=== PATIENT | female | born 1970 | race Caucasian/White ===

== ENCOUNTER 2018-03-09 13:28 | Emergency (ER) | payer OTHER, SELFPAY ==
[2018-03-09 13:30] VITALS: BP 119/84; PULSE 76; RESP 15; TEMP 37.2; O2SAT 99; BMI 23.9
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
[2018-03-09] MEDS: IBUPROFEN 400 MG TABLET 800 MG PO (17:04)
== END 2018-03-09 17:45 | disposition home or self-care (01) ==
PROVIDERS: Emergency Provider Internal Medicine
DX: S00.83XA Contusion of other part of head, initial encounter (principal); S62.605A Fracture of unspecified phalanx of left ring finger, initial encounter for closed fracture; Y04.2XXA Assault by strike against or bumped into by another person, initial encounter; Y99.0 Civilian activity done for income or pay
CPT/HCPCS: 29125; 73140; 81025; 99283

== ENCOUNTER → 2018-10-26 08:02 | Outpatient (CLI) | payer OTHER, SELFPAY ==
--- NOTE | 2018-10-26 08:02 | DI.MG.S_ITS ---
BILATERAL DIGITAL SCREENING MAMMOGRAM 3D/2D WITH CAD: 10/26/2018 CLINICAL: Routine screening. Comparison is made to exams dated: 04/18/2014 mammogram and 09/24/2013 mammogram - [facility]. The tissue of both breasts is heterogeneously dense. This may lower the sensitivity of mammography. Current study was also evaluated with a Computer Aided Detection (CAD) system. There is an asymmetry in the right breast posterior depth superior region seen on the mediolateral oblique view only. There is possible architectural distortion associated with the asymmetry. There is an asymmetry in the left breast posterior depth central to the nipple seen on the craniocaudal view only. There is possible architectural distortion associated with the asymmetry. IMPRESSION: INCOMPLETE: NEEDS ADDITIONAL IMAGING EVALUATION 1) The asymmetry in the right breast posterior depth superior region with possible associated architectural distortion seen on the mediolateral oblique view only is indeterminate. Additional views with possible ultrasound are recommended. 2) The asymmetry in the left breast posterior depth central to the nipple with possible associated architectural distortion seen on the craniocaudal view only is indeterminate. Additional views with possible ultrasound are recommended. This exam was interpreted at Station ID: [id number]. NOTE: For mammograms, a report in lay terms will be sent to the patient. Approximately 15% of breast malignancies will not be visualized mammographically. In the management of a palpable breast mass, a negative mammogram must not discourage biopsy of a clinically suspicious lesion. Electronically Signed By: Jone Lerner M.D. ecl/:10/26/2018 12:45:08 letter sent: Additional Imaging Needed ACR BI-RADS Category 0: Incomplete 3340F
== END ==
PROVIDERS: PCP Family Medicine; Visit Provider Family Medicine
DX: Z12.31 Encounter for screening mammogram for malignant neoplasm of breast (principal)
CPT/HCPCS: 77063; 77067

== ENCOUNTER → 2018-11-13 08:53 | Outpatient (CLI) | payer OTHER, SELFPAY ==
--- NOTE | 2018-11-13 08:54 | DI.MG.S_ITS ---
BILATERAL DIGITAL DIAGNOSTIC MAMMOGRAM 3D/2D WITH ADDITIONAL VIEWS: 11/13/2018 CLINICAL: Additional evaluation requested from prior study. Comparison is made to exams dated: 10/26/2018 [facility] and 04/18/2014 mammogram [facility]. The tissue of both breasts is heterogeneously dense. This may lower the sensitivity of mammography. There is a benign irregular asymmetry in the right breast middle depth superior region seen on the mediolateral oblique view only. This is not seen in additional views. There is a benign irregular asymmetry in the left breast posterior depth central to the nipple seen on the craniocaudal view only. This is not seen in additional views. No other significant masses or calcifications are seen in either breast. IMPRESSION: There is no mammographic evidence of malignancy. A 1 year screening mammogram is recommended. This exam was interpreted at Station ID: [id number]. NOTE: For mammograms, a report in lay terms will be sent to the patient. Approximately 15% of breast malignancies will not be visualized mammographically. In the management of a palpable breast mass, a negative mammogram must not discourage biopsy of a clinically suspicious lesion. Electronically Signed By: Jeremy morris/eric:11/13/2018 09:37:17 letter sent: Normal Exam ACR BI-RADS Category 2: Benign Finding(s) 3342F
== END ==
PROVIDERS: PCP Family Medicine; Visit Provider Family Medicine
DX: R92.8 Other abnormal and inconclusive findings on diagnostic imaging of breast (principal)
CPT/HCPCS: 77066; G0279

== ENCOUNTER → 2019-04-02 17:06 | Outpatient (CLI) | payer OTHER, SELFPAY | PROVIDERS: PCP Family Medicine; Visit Provider Family Medicine | DX: J02.9 Acute pharyngitis, unspecified (principal) | CPT/HCPCS: 87070; 87077; 87147 ==

== ENCOUNTER → 2019-05-31 16:50 | Outpatient (CLI) | payer OTHER, SELFPAY ==
[2019-05-31 17:07] LABS: Hematocrit 42.7 % (36-46); Hemoglobin 14.6 g/dL (12.0-16.0); Mean Corpuscular HGB Conc 34.2 % (30-36); Mean Corpuscular Hemoglobin 31.6 PG (26-34); Mean Corpuscular Volume 92.6 fL (80-100); Platelet Count 215 X10^3/uL (150-400); Red Blood Cell Count 4.61 X10^6/uL (4.0-5.2); Red Cell Distribution Width 12.9 % (11.6-14.8); White Blood Cell Count 6.8 X10^3/uL (4.5-11.0)
[2019-05-31 18:16] LABS: HEMOLYSIS < 15 (0-50); Iron 164 ug/dL (37-170)
[2019-05-31 18:27] LABS: Percent Iron Saturation 41 % (15-50); Total Iron Binding Capacity 396 ug/dL (265-497); Transferrin 329 mg/dL (206-381)
== END ==
PROVIDERS: PCP Family Medicine; Visit Provider Family Medicine
DX: D50.9 Iron deficiency anemia, unspecified (principal); E03.9 Hypothyroidism, unspecified
CPT/HCPCS: 36415; 83540; 83550; 84443; 85027

== ENCOUNTER → 2020-06-09 17:42 | Outpatient (CLI) | payer OTHER, SELFPAY ==
--- NOTE | 2020-06-09 17:43 | DI.MG.S_ITS ---
BILATERAL DIGITAL SCREENING MAMMOGRAM 3D/2D WITH CAD: 06/09/2020 CLINICAL: Routine screening. Comparison is made to exams dated: 11/13/2018 mammogram, 10/26/2018 mammogram - [facility], 04/18/2014 mammogram, and 09/24/2013 mammogram - [facility]. The tissue of both breasts is heterogeneously dense. This may lower the sensitivity of mammography. Current study was also evaluated with a Computer Aided Detection (CAD) system. There is an oval equal density asymmetry with an indistinct margin in the left breast middle depth central to the nipple seen on the craniocaudal view only. There is architectural distortion associated with the asymmetry. No other significant masses, calcifications, or other findings are seen in either breast. IMPRESSION: INCOMPLETE: NEEDS ADDITIONAL IMAGING EVALUATION The oval equal density asymmetry in the left breast is indeterminate. Mediolateral and spot compression views as well as additional views with possible ultrasound are recommended. This exam was interpreted at Station ID: [id number]. NOTE: For mammograms, a report in lay terms will be sent to the patient. Approximately 15% of breast malignancies will not be visualized mammographically. In the management of a palpable breast mass, a negative mammogram must not discourage biopsy of a clinically suspicious lesion. Electronically Signed By: Jeremy morris/eric:06/10/2020 08:28:37 letter sent: Additional Imaging Needed ACR BI-RADS Category 0: Incomplete [id number]
== END ==
PROVIDERS: PCP Family Medicine; Referring Provider Family Medicine; Visit Provider Family Medicine
DX: Z12.31 Encounter for screening mammogram for malignant neoplasm of breast (principal)
CPT/HCPCS: 77063; 77067

== ENCOUNTER → 2020-06-24 09:16 | Outpatient (CLI) | payer OTHER, SELFPAY ==
[2020-06-24 11:40] LABS: Cholesterol 214 mg/dL (140-199); Glucose 95 mg/dL (70-100); HDL Cholesterol 60 mg/dL (40-60); LDL Cholesterol Calculated 121 mg/dL (<100); Triglycerides 163 mg/dL (35-150)
[2020-06-24 12:10] LABS: Thyroid Stimulating Hormone 2.13 uIU/mL (0.47-4.68)
== END ==
PROVIDERS: PCP Family Medicine; Referring Provider Family Medicine; Visit Provider Family Medicine
DX: Z13.220 Encounter for screening for lipoid disorders (principal); E03.9 Hypothyroidism, unspecified; Z13.1 Encounter for screening for diabetes mellitus
CPT/HCPCS: 36415; 80061; 82947; 84443

== ENCOUNTER → 2020-07-09 08:44 | Outpatient (CLI) | payer OTHER, SELFPAY ==
--- NOTE | 2020-07-09 08:46 | DI.MG.S_ITS ---
UNILATERAL LEFT DIGITAL DIAGNOSTIC MAMMOGRAM 3D/2D WITH ADDITIONAL VIEWS: 07/09/2020 CLINICAL: Additional evaluation requested from prior study. Comparison is made to exams dated: 06/09/2020 mammogram, 11/13/2018 mammogram, 10/26/2018 mammogram - [facility], and 04/18/2014 mammogram - [facility]. The tissue of left breast is heterogeneously dense. This may lower the sensitivity of mammography. There is an oval equal density asymmetry with an indistinct margin in the left breast posterior depth central to the nipple seen on the craniocaudal view only. This is not confirmed in additional views and also has not significantly changed since the screening mammogram of 10/26/18. There is possible architectural distortion associated with the asymmetry. No other significant masses or calcifications are seen in the breast. IMPRESSION: INCOMPLETE: NEEDS ADDITIONAL IMAGING EVALUATION The oval equal density asymmetry in the left breast remains indeterminate. An ultrasound is recommended for further evaluation of this area. This was performed immediately following this exam. This exam was interpreted at Station ID: [id number]. NOTE: For mammograms, a report in lay terms will be sent to the patient. Approximately 15% of breast malignancies will not be visualized mammographically. In the management of a palpable breast mass, a negative mammogram must not discourage biopsy of a clinically suspicious lesion. Electronically Signed By: Kierra castro/:07/09/2020 09:57:47 ACR BI-RADS Category 0: Incomplete [id number]
--- NOTE | 2020-07-09 08:46 | DI.US.S_ITS ---
LIMITED ULTRASOUND OF LEFT BREAST: 07/09/2020 CLINICAL: Patient returns today to evaluate an architectural distortion in the left breast. Comparison is made to exams dated: 07/09/2020 mammogram, 06/09/2020 mammogram, and 11/13/2018 mammogram - [facility]. Color flow and real-time ultrasound of the left breast 11-1 o'clock, 5-7 o'clock, and retroareolar regions were performed. There is no abnormality seen in the left breast to correspond with the mammography finding in the posterior depth. Incidental finding of a 0.6 cm x 0.3 cm x 0.3 cm cluster of cysts in the left breast at 3 o'clock anterior depth 2 cm from the nipple. This cluster of cysts displays no posterior acoustic shadowing or enhancement. Color flow imaging demonstrates that there is no vascularity present. IMPRESSION: PROBABLY BENIGN There is no abnormality seen in the left breast to correspond with the mammography finding in the posterior depth. A follow-up left mammogram and possible ultrasound in 6 months is recommended to demonstrate stability. The 0.6 cm x 0.3 cm x 0.3 cm cluster of cysts in the left breast resembles apocrine metaplasia or a complicated cyst and is probably benign. A follow-up ultrasound in 6 months is recommended. Findings and recommendations were conveyed to the patient at time of exam. This exam was interpreted at Station ID: [id number]. Electronically Signed By: Kierra castro/:07/09/2020 10:50:26 letter sent: Followup Recommended Ultrasound BI-RADS: 3 Probably benign
== END ==
PROVIDERS: PCP Family Medicine; Referring Provider Family Medicine; Visit Provider Family Medicine
DX: R92.2 Inconclusive mammogram (principal); R92.8 Other abnormal and inconclusive findings on diagnostic imaging of breast
CPT/HCPCS: 76642; 77065; G0279

== ENCOUNTER → 2020-09-09 15:19 | Outpatient (CLI) | payer OTHER, SELFPAY ==
--- NOTE | 2020-09-09 15:22 | DI.MRI.S_ITS ---
BREAST MRI OF BOTH BREASTS: 09/09/2020 CLINICAL: Mastodynia. INDICATIONS: Mastodynia TECHNIQUE: The patient was placed prone in a dedicated breast imaging coil. Precontrast axial STIR and 3D FLASH without fat saturation sequences were obtained. Both before and after bolus injection of contrast, sequential 1-minute axial 3D FLASH with fat saturation sequences for 3 time points, with subtraction images and maximum intensity projections (MIP's) generated. Delayed sagittal FLASH images with fat saturation were also obtained. 20 cc ProHance gadolinium based IV contrast was administered. Computer-aided detection, including computer algorithm analysis of MRI image data for lesion detection and characterization, pharmacokinetic analysis, with further physician review for interpretation, was performed. Comparison is made to exams dated: 07/09/2020 mammogram, 06/09/2020 mammogram, 11/13/2018 mammogram, and 10/26/2018 mammogram - [facility]. FINDINGS: Image quality: Excellent. There is mild background parenchymal enhancement. Right breast: No suspicious masses or non masslike enhancement. Left breast: No suspicious masses or non masslike enhancement. There is a well-circumscribed, 6 mm, T2 hyperintense, nonenhancing structure, consistent with a cyst in the 3 o'clock position of the left breast about 1 cm from the nipple, probably corresponding to the sonographic finding of a complicated cyst seen previously. There is no correlate to the resolved, 12:00 o'clock asymmetry from screening mammography. Miscellaneous: No axillary or internal mammary chain adenopathy. The visible portions of the chest wall, heart, and liver are normal. IMPRESSION: PROBABLY BENIGN 1. No suspicious findings to explain left breast mastodynia or correlate to the screening mammography finding of asymmetry in the left breast. 2. Nonenhancing 6 mm cystic structure in the left breast likely corresponds to the complicated cyst as seen by ultrasound. 3. Continue with left breast follow-up mammogram and ultrasound in four months as previously recommended. BIRADS three, probably benign COMMENT: The imaging literature indicates that a negative contrast breast MRI examination has a high sensitivity and a moderate specificity for detecting and excluding invasive carcinomas to a detection threshold of 3-5 mm; nonetheless, appropriate clinical and mammographic follow-up are recommended. MRI is not sensitive for detecting DCIS (ductal carcinoma in situ) and may not detect large invasive neoplasms that show only minimal enhancement such as mucinous carcinoma. If there are suspicious calcifications or clinically worrisome palpable masses, then biopsy should still be considered. Invasive neoplasms can be hidden by co-existent and benign enhancement caused by mastitis, hormone therapy effects, radiation therapy, , and recent biopsy or surgery. False positive examinations can occur in a number of circumstances, including breasts that have recently been subject to invasive procedures and those that contain atypical ductal hyperplasia, hormonally stimulated glandular tissue, fat necrosis, or radial scars. This exam was interpreted at Station ID: [id number]. Electronically Signed By: Kierra castro/:09/10/2020 11:14:27 letter sent: Followup Recommended ACR BI-RADS Category 3: Probably benign [id number]
== END ==
PROVIDERS: PCP Family Medicine; Referring Provider Surgery; Visit Provider Surgery
DX: N64.4 Mastodynia (principal); N60.02 Solitary cyst of left breast
CPT/HCPCS: 77049

== ENCOUNTER → 2021-09-14 17:51 | Outpatient (CLI) | payer OTHER, SELFPAY ==
--- NOTE | 2021-09-14 17:52 | DI.MG.S_ITS ---
BILATERAL DIGITAL SCREENING MAMMOGRAM 3D/2D WITH CAD: 09/14/2021 CLINICAL: Routine screening. Comparison is made to exams dated: 01/27/2021 ultrasound, 01/27/2021 mammogram - [facility], 07/09/2020 ultrasound, 07/09/2020 mammogram, and 06/09/2020 mammogram - [facility]. The tissue of both breasts is heterogeneously dense. This may lower the sensitivity of mammography. Current study was also evaluated with a Computer Aided Detection (CAD) system. No significant masses, calcifications, or other findings are seen in either breast. There has been no significant interval change. IMPRESSION: NEGATIVE There is no mammographic evidence of malignancy. A 1 year screening mammogram is recommended. This exam was interpreted at Station ID: [id number]. NOTE: For mammograms, a report in lay terms will be sent to the patient. Approximately 15% of breast malignancies will not be visualized mammographically. In the management of a palpable breast mass, a negative mammogram must not discourage biopsy of a clinically suspicious lesion. Electronically Signed By: Kierra castro/eric:09/15/2021 10:33:59 letter sent: Normal Exam ACR BI-RADS Category 1: Negative [id number]
== END ==
PROVIDERS: PCP Family Medicine; Referring Provider Surgery; Visit Provider Surgery
DX: Z12.31 Encounter for screening mammogram for malignant neoplasm of breast (principal)
CPT/HCPCS: 77063; 77067

== ENCOUNTER → 2022-01-07 08:27 | Outpatient (CLI) | payer OTHER, SELFPAY ==
[2022-01-07 10:45] LABS: Add Manual Diff / Slide Review NO; Basophils Absolute Auto 100 /uL (0-100); Basophils Percent Auto 1.2 % (0-2); Eosinophils Absolute Auto 100 /uL (0-450); Eosinophils Percent Auto 1.4 % (2-4); Hematocrit 33.1 % (36-46); Hemoglobin 10.5 g/dL (12.0-16.0); Lymphocytes Absolute Auto 1100 /uL (1100-4500); Lymphocytes Percent Auto 19.7 % (25-40); Mean Corpuscular HGB Conc 31.9 % (30-36); Mean Corpuscular Hemoglobin 23.1 PG (26-34); Mean Corpuscular Volume 72.3 fL (80-100); Monocytes Absolute Auto 300 /uL (0-900); Monocytes Percent Auto 5.7 % (3-14); Neutrophils Absolute Auto 3900 /uL (1500-7000); Platelet Count 291 X10^3/uL (150-400); Red Blood Cell Count 4.57 X10^6/uL (4.0-5.2); Red Cell Distribution Width 16.9 % (11.6-14.8); White Blood Cell Count 5.5 X10^3/uL (4.5-11.0)
[2022-01-07 11:09] LABS: Alanine Aminotransferase 18 IU/L (<35); Albumin 4.3 g/dL (3.5-5.0); Albumin Globulin Ratio 1.8 (1.0-2.8); Alkaline Phosphatase 57 U/L (38-126); Aspartate Aminotransferase 23 IU/L (14-36); Bilirubin Total 0.5 mg/dL (0.2-1.3); Calcium 8.8 mg/dL (8.4-10.2); Carbon Dioxide 30 mmol/L (22-32); Chloride 102 mmol/L (98-107); Cholesterol 201 mg/dL (140-199); Estimated Glomerular Filt Rate > 60 mL/min (>60); Globulin 2.4 g/dL (1.7-4.1); Glucose 88 mg/dL (70-100); HDL Cholesterol 68 mg/dL (40-60); HEMOLYSIS < 15 (0-50); LDL Cholesterol Calculated 113 mg/dL (<100); Potassium 4.4 mmol/L (3.4-5.1); Sodium 137 mmol/L (137-145); Total Protein 6.7 g/dL (6.3-8.2); Triglycerides 102 mg/dL (35-150)
[2022-01-07 11:12] LABS: BUN Creatinine Ratio 17.3 (6-22); Blood Urea Nitrogen 13 mg/dL (7-17)
[2022-01-07 11:14] LABS: Follicle Stimulating Hormone 6.36 mIU/mL
[2022-01-07 11:30] LABS: Estradiol, Total 60.7 pg/mL
[2022-01-07 11:38] LABS: Cortisol AM (Before 10AM) 7.86 ug/dL (4.46-22.7)
[2022-01-07 11:42] LABS: Ferritin 4 ng/mL (11-264)
[2022-01-07 17:15] LABS: HEMOLYSIS < 15 (0-50); Iron 22 ug/dL (37-170)
[2022-01-07 17:26] LABS: Percent Iron Saturation 5 % (15-50); Total Iron Binding Capacity 481 ug/dL (265-497); Transferrin 354 mg/dL (206-381)
[2022-01-07 18:22] LABS: Vitamin B12 166 pg/mL (239-931)
== END ==
PROVIDERS: PCP Family Medicine; Referring Provider Naturopath; Visit Provider Naturopath
DX: Z00.00 Encounter for general adult medical examination without abnormal findings (principal); R53.83 Other fatigue; N95.9 Unspecified menopausal and perimenopausal disorder
CPT/HCPCS: 36415; 80053; 80061; 82533; 82607; 82670; 82728; 82746; 83001; 83540; 83550; 84443; 85025

== ENCOUNTER → 2022-03-10 07:02 | Outpatient (CLI) | payer OTHER, SELFPAY ==
[2022-03-10 08:28] LABS: Add Manual Diff / Slide Review NO; Basophils Absolute Auto 100 /uL (0-100); Eosinophils Absolute Auto 100 /uL (0-450); Eosinophils Percent Auto 1.6 % (2-4); Hematocrit 38.1 % (36-46); Hemoglobin 12.8 g/dL (12.0-16.0); Lymphocytes Absolute Auto 1100 /uL (1100-4500); Lymphocytes Percent Auto 20.2 % (25-40); Mean Corpuscular HGB Conc 33.5 % (30-36); Mean Corpuscular Hemoglobin 26.7 PG (26-34); Mean Corpuscular Volume 79.6 fL (80-100); Monocytes Absolute Auto 400 /uL (0-900); Monocytes Percent Auto 6.6 % (3-14); Neutrophils Absolute Auto 3800 /uL (1500-7000); Neutrophils Percent Auto 70.6 % (50-75); Platelet Count 259 X10^3/uL (150-400); Red Blood Cell Count 4.79 X10^6/uL (4.0-5.2); Red Cell Distribution Width 21.2 % (11.6-14.8); White Blood Cell Count 5.3 X10^3/uL (4.5-11.0)
[2022-03-10 09:01] LABS: Anisocytosis 1+
[2022-03-10 09:03] LABS: HEMOLYSIS < 15 (0-50); Iron 30 ug/dL (37-170)
[2022-03-10 09:14] LABS: Percent Iron Saturation 8 % (15-50); Total Iron Binding Capacity 395 ug/dL (265-497); Transferrin 292 mg/dL (206-381)
[2022-03-10 09:32] LABS: Ferritin 11 ng/mL (11-264)
[2022-03-10 10:04] LABS: Folate 7.9 ng/mL (2.76-20.0); Vitamin B12 298 pg/mL (239-931)
== END ==
PROVIDERS: PCP Family Medicine; Referring Provider Naturopath; Visit Provider Naturopath
DX: D84.9 Immunodeficiency, unspecified (principal); R53.83 Other fatigue; Z00.00 Encounter for general adult medical examination without abnormal findings
CPT/HCPCS: 36415; 82607; 82728; 82746; 83540; 83550; 85025

== ENCOUNTER → 2022-03-27 08:28 | Outpatient (CLI) | payer OTHER, SELFPAY ==
[2022-03-27 09:32] LABS: Add Manual Diff / Slide Review NO; Basophils Absolute Auto 100 /uL (0-100); Basophils Percent Auto 1.3 % (0-2); Eosinophils Absolute Auto 100 /uL (0-450); Eosinophils Percent Auto 2.3 % (2-4); Hematocrit 41.1 % (36-46); Hemoglobin 13.7 g/dL (12.0-16.0); Lymphocytes Absolute Auto 900 /uL (1100-4500); Lymphocytes Percent Auto 17.2 % (25-40); Mean Corpuscular HGB Conc 33.2 % (30-36); Mean Corpuscular Hemoglobin 27.6 PG (26-34); Mean Corpuscular Volume 82.9 fL (80-100); Monocytes Absolute Auto 300 /uL (0-900); Monocytes Percent Auto 5.3 % (3-14); Neutrophils Absolute Auto 3700 /uL (1500-7000); Neutrophils Percent Auto 73.9 % (50-75); Platelet Count 214 X10^3/uL (150-400); Red Blood Cell Count 4.96 X10^6/uL (4.0-5.2); Red Cell Distribution Width 19.4 % (11.6-14.8)
[2022-03-31 17:08] LABS: ANA Screen, IFA Positive (.)
== END ==
PROVIDERS: PCP Family Medicine; Referring Provider Naturopath; Visit Provider Naturopath
DX: D64.9 Anemia, unspecified (principal); R53.83 Other fatigue
CPT/HCPCS: 36415; 85025; 86038

== ENCOUNTER → 2022-06-14 09:28 | Outpatient (CLI) | payer OTHER, SELFPAY ==
[2022-06-14 11:57] LABS: COVID19 -Nasal RAPID Negative (Negative)
== END ==
PROVIDERS: PCP Family Medicine; Visit Provider Surgery
DX: Z01.812 Encounter for preprocedural laboratory examination (principal); Z20.822 Contact with and (suspected) exposure to COVID-19
CPT/HCPCS: 87635; C9803

== ENCOUNTER 2022-12-24 08:11 | Day surgery (SDC) | payer OTHER, SELFPAY ==
[2022-12-24] VITALS (8 sets, daily range): BP systolic 99–117; BP diastolic 68–81; PULSE 61–89; RESP 16–22; TEMP 36.3–36.4; O2SAT 97–100; BMI 23.9
--- NOTE | 2022-12-24 | PATH_ITS ---
[facility] Accession Number: [id number] No. of containers..02 Tissue . 01 Material submitted: . PART A: colon - CECAL POLYP PART B: rectum - RECTAL POLYP . 01 Diagnosis: A. Cecal Polyp: Tubular adenoma. . B. Rectal Polyp: Tubular adenoma. MRV 01/04/2023 1707 Local . 01 Electronically signed: . Conchita Nelson MD, Pathologist NPI- [id number] . 01 Gross description: . Part A: CECAL POLYP: Received in formalin are 2 fragment(s) of [place], soft tissue measuring 0.1 x 0.1 x 0.1 cm to 0.2 x 0.2 x 0.2 cm submitted entirely in 1 cassette(s) Part B: RECTAL POLYP: Received in formalin are 3 fragment(s) of [place], soft tissue measuring 0.2 x 0.2 x 0.2 cm to 0.3 x 0.2 x 0.1 cm submitted entirely in 1 cassette(s) /LEOLA 12/31/2022 2334 Local . 01 Pathologist provided ICD-10: K63.5 . 01 CPT . 939780, 872800 Specimen Comment: A courtesy copy of this report has been sent to [facility] Pathology Performed at: 01 [facility] [address], [place], [place] [id number] MD Jeremy Mcdaniels MD Phone: [phone]
[2022-12-24] MEDS: SCOPOLAMINE 1 PATCH TOP (08:47)
[2022-12-24] MEDS: ONDANSETRON 4 MG/2 ML INJ IV (08:51)
[2022-12-24] MEDS: FAMOTIDINE 20 MG/2 ML VIAL IV (08:53)
[2022-12-24] MEDS: LACTATED RINGERS 1,000 ML 42 ML IV (09:07)
--- NOTE | 2022-12-24 09:18 | PM.HP.1 ---
History of Present Illness History of Present Illness Date Patient Seen: 12/24/22 Time Patient Seen: 09:18 Chief complaint: Colonoscopy Narrative: Ms. Barraza presents today for her 1st screening colonoscopy. She did have a grandfather who was potentially diagnosed with colon cancer at the age of 90 but they were not sure because he decided not to have any treatment. As far she knows she has no other family history of colon cancer. No other family members who have had polyps on their screening colonoscopy that she is aware of. She has had no concerning symptoms no bleeding, changes in bowel habits, or abdominal pain. [facility] Medical History (Updated 06/02/20 @ 13:46 by Antonia Buckner MD) Anemia Chicken pox Hemorrhoid (~2016) Herpes Hypothyroidism Iron deficiency anemia Recurrent sinusitis Vertigo Vision disorder Surgical History Anesthesia History of section History of sinus surgery (~01/2012) Hooper teeth removed (~1994) Social History marital status: household members: spouse pets and animals: Yes education level: master's degree occupational status: employed [employer]ism: [employer] leisure activities: reading other: crafts seatbelt use: always helmet use: Yes working smoke detector in home: Yes fire extinguisher in home: Yes carbon monox detector in home: Yes firearms in home: No Smoking Status: Never smoker alcohol intake: current substance use type: does not use during the past year weight has: increased > 10 lbs daily servings fruits/ve-4 caffeine: Yes eating out: rarely or never Meds Home Medications and Allergies Home Medications Medication Instructions Recorded Confirmed Type levothyroxine 100 mcg tablet See Rx Instructions .Route 04/20/21 12/24/22 Rx .COMPLEX #90 tabs Allergies Allergy/AdvReac Type Severity Reaction Status Date / Time Sulfa (Sulfonamide AdvReac Mild swelling Verified 12/24/22 08:22 Antibiotics) ankles, blotches Exam Vital Signs (past 8 hours): - 12/24/22 08:29 Temperature 97.5 F L Pulse Rate 89 Respiratory Rate 17 Blood Pressure 115/81 Pulse Oximetry 97 Oxygen Delivery Method Room Air Oxygen Delivery Method Room Air Const General: cooperative, healthy appearing and comfortable HENMT Head: normal to inspection Eyes General: appearance normal, both eyes and all related structures Resp Effort & Inspection: normal respiratory effort and able to speak in complete sentences GI Palpation: soft and No tender Assessment & Plan Assessment & Plan narrative: Presents today for screening colonoscopy I discussed the risks benefits and alternatives including but not limited to perforation of the colon and an incomplete exam she fully understands these risks and would like to proceed.
--- NOTE | 2022-12-24 10:14 | P.OP.COLON_ITS ---
Operative Date/Time/Diagnoses Date of procedure: 12/24/22 Pre-op diagnosis: Colon cancer screening, +/-family history of colon cancer with a grandfather who had a questionable diagnosis at age 90. Post-op diagnosis: same Procedure & Clinicians Study performed: Colonoscopy and biopsy Same procedure as scheduled: Yes Indications: Colon cancer screening Surgeon: Daphne Salinas Procedure Notes Procedure in detail: Patient was taken to the endoscopy suite and placed in a left lateral decubitus position. A time-out was performed. With the help of anesthesiology provider, conscious sedation was induced and monitored throughout the case. A digital rectal exam was performed and there were no masses or strictures. The colonoscope was introduced into the anal canal and advanced through to the cecum. There were scattered diverticula in the sigmoid colon. A photograph of the appendiceal orifice was obtained. The bowel prep was good [place] bowel prep score of 2. The scope was then withdrawn for a total of 13 minutes. There was 1 small polyp that was seen in the cecum near the appendiceal orifice. It was removed with biopsy forceps and sent pathology. There was also 1 small polyp removed from the rectum again with the biopsy forceps. The scope was then retroflexed and a photograph of the internal hemorrhoidal piles was obtained. Findings: divertiulosis Specimen(s): other (1. Go polyp 2. Rectal polyp (both small) ) Complications: none Post-procedure Plan for aftercare: Colonoscopy in 7-10 years. If family history of colon cancer is considered to be positive follow-up recommendation would be 5 years. I do recommend a fiber supplement with diverticula and polyps.
== END 2022-12-24 10:40 | disposition home or self-care (01) ==
PROVIDERS: PCP Family Medicine; Referring Provider Surgery; Visit Provider Surgery
PROC: 0DJD8ZZ Inspection of Lower Intestinal Tract, Via Natural or Artificial Opening Endoscopic (ICD-10-PCS; CPT 45378; principal; 2022-12-24 09:15)
DX: Z12.11 Encounter for screening for malignant neoplasm of colon (principal); K57.30 Diverticulosis of large intestine without perforation or abscess without bleeding; D12.0 Benign neoplasm of cecum; D12.8 Benign neoplasm of rectum
CPT/HCPCS: 45380; J2405; J2704

== ENCOUNTER → 2023-02-01 06:44 | Outpatient (CLI) | payer OTHER, SELFPAY ==
[2023-02-01 08:10] LABS: Add Manual Diff / Slide Review NO; Basophils Absolute Auto 100 /uL (0-100); Basophils Percent Auto 1.4 % (0-2); Eosinophils Absolute Auto 100 /uL (0-450); Eosinophils Percent Auto 2.4 % (2-4); Hematocrit 42.5 % (36-46); Hemoglobin 14.7 g/dL (12.0-16.0); Lymphocytes Absolute Auto 1200 /uL (1100-4500); Lymphocytes Percent Auto 25.5 % (25-40); Mean Corpuscular HGB Conc 34.6 % (30-36); Mean Corpuscular Hemoglobin 30.7 PG (26-34); Mean Corpuscular Volume 88.8 fL (80-100); Monocytes Absolute Auto 400 /uL (0-900); Monocytes Percent Auto 7.5 % (3-14); Neutrophils Absolute Auto 3000 /uL (1500-7000); Neutrophils Percent Auto 63.2 % (50-75); Platelet Count 203 X10^3/uL (150-400); Red Blood Cell Count 4.79 X10^6/uL (4.0-5.2); Red Cell Distribution Width 13.1 % (11.6-14.8); White Blood Cell Count 4.7 X10^3/uL (4.5-11.0)
[2023-02-01 08:46] LABS: HEMOLYSIS < 15 (0-50)
[2023-02-01 08:50] LABS: Iron 107 ug/dL (37-170)
[2023-02-01 09:00] LABS: Alanine Aminotransferase 18 IU/L (<35); Albumin 4.2 g/dL (3.5-5.0); Albumin Globulin Ratio 1.8 (1.0-2.8); Alkaline Phosphatase 55 U/L (38-126); Aspartate Aminotransferase 23 IU/L (14-36); Bilirubin Total 0.8 mg/dL (0.2-1.3); Blood Urea Nitrogen 15 mg/dL (7-17); Carbon Dioxide 27 mmol/L (22-32); Chloride 103 mmol/L (98-107); Estimated Glomerular Filt Rate > 60 mL/min (>60); Globulin 2.4 g/dL (1.7-4.1); Glucose 97 mg/dL (70-100); HEMOLYSIS < 15 (0-50); Percent Iron Saturation 28 % (15-50); Potassium 4.1 mmol/L (3.4-5.1); Sodium 138 mmol/L (137-145); Total Iron Binding Capacity 377 ug/dL (265-497); Total Protein 6.6 g/dL (6.3-8.2)
[2023-02-01 09:01] LABS: Transferrin 293 mg/dL (206-381)
[2023-02-01 09:11] LABS: Free T4, Direct Thyroxine 1.01 ng/dL (0.78-2.19)
[2023-02-01 09:25] LABS: Thyroid Stimulating Hormone 4.02 uIU/mL (0.47-4.68)
[2023-02-01 10:05] LABS: Folate 7.7 ng/mL (2.76-20.0); Vitamin B12 190 pg/mL (239-931)
== END ==
PROVIDERS: PCP Naturopath; Referring Provider Naturopath; Visit Provider Naturopath
DX: D50.9 Iron deficiency anemia, unspecified (principal); E03.9 Hypothyroidism, unspecified
CPT/HCPCS: 36415; 80053; 82607; 82746; 83540; 83550; 84439; 84443; 84481; 85025

== ENCOUNTER → 2023-02-22 07:19 | Outpatient (CLI) | payer OTHER, SELFPAY ==
[2023-02-22 07:44] LABS: Reticulocyte Count, Percent 0.8 % (1.1-2.6)
[2023-02-23 09:01] LABS: Homocysteine 13.5 umol/L (0.0-14.5)
[2023-02-23 19:08] LABS: Deamidated Gliadin Ab IgA 3 units (0-19); Deamidated Gliadin Ab IgG 2 units (0-19); Immunoglobulin A,Qn 62 mg/dL (87-352); t-Transglutaminase IgA <2 U/mL (0-3)
[2023-02-25 17:08] LABS: Intrinsic Factor Blocking Aby 1.1 AU/mL (0.0-1.1)
== END ==
PROVIDERS: PCP Naturopath; Referring Provider Naturopath; Visit Provider Naturopath
DX: E53.8 Deficiency of other specified B group vitamins (principal); D64.9 Anemia, unspecified
CPT/HCPCS: 36415; 82784; 83090; 83516; 85045; 86340

== ENCOUNTER 2023-05-23 09:33 | Day surgery (SDC) | payer OTHER, SELFPAY ==
--- NOTE | 2023-05-23 | PATH_ITS ---
[facility] Accession Number: [id number] No. of containers..04 Tissue . 01 Material submitted: . PART A: duodenum - DUODENUM PART B: stomach - ANTRUM PART C: stomach - GASTRIC BODY PART D: esophagus - MID ESOPHAGUS . 01 Diagnosis: A. Duodenum, Biopsy: Duodenal mucosa with no diagnostic abnormality. Negative for active inflammation, features of sprue, dysplasia, or malignancy. . B. Antrum, Biopsy: Gastric mucosa with mild chronic inflammation. No Helicobacter pylori organisms identified on immunohistochemical evaluation. No intestinal metaplasia, dysplasia, or malignancy. . C. Gastric Body, Biopsy: Gastric mucosa with moderate chronic inflammation and focal intestinal metaplasia. No Helicobacter pylori organisms identified on immunohistochemical evaluation. No dysplasia or malignancy. . D. Mid Esophagus, Biopsy: Esophageal squamous epithelium with no significant diagnostic alterations. No evidence of eosinophilic esophagitis. No fungal organisms identified on H/E slide. No glandular mucosa present. No dysplasia or malignancy. [facility] 06/06/2023 1036 Local . 01 Electronically signed: . Alyson Padron MD, Pathologist NPI- [id number] . 01 Gross description: . Part A: DUODENUM: Received in formalin is multiple fragment(s) of [place], soft tissue measuring 0.8 x 0.4 x 0.1 cm in aggregate submitted entirely in 1 cassette(s) Part B: ANTRUM: Received in formalin is 2 fragment(s) of [place], soft tissue measuring 0.3 x 0.1 x 0.1 cm to 0.1 x 0.1 x 0.1 cm submitted entirely in 1 cassette(s) Part C: GASTRIC BODY: Received in formalin is 2 fragment(s) of [place], soft tissue measuring 0.2 x 0.2 x 0.1 cm to 0.2 x 0.1 x 0.1 cm submitted entirely in 1 cassette(s) Part D: MID ESOPHAGUS: Received in formalin is 2 fragment(s) of [place], soft tissue measuring 0.3 x 0.3 x 0.1 cm to 0.2 x 0.2 x 0.1 cm submitted entirely in 1 cassette(s) /AAY 05/24/2023 0546 Local . 01 Microscopic: . B. An immunohistochemical stain was performed to evaluate for Helicobacter organisms and is negative. The control stain showed appropriate reactivity. . C. An immunohistochemical stain was performed to evaluate for Helicobacter organisms and is negative. The control stain showed appropriate reactivity. . * This test was developed and its performance characteristics determined by [employer]. It has not been cleared or approved by the U.S. Food and Drug Administration. The FDA has determined that such clearance or approval is not necessary. This test is used for clinical purposes. It should not be regarded as investigational or for research. . 01 Pathologist provided ICD-10: K29.70, R19.7 . 01 CPT . 123886, 964652, 748743, 208585, I67693, D12361 Specimen Comment: A courtesy copy of this report has been sent to [phone] Performed at: 01 [facility] [address] [place] [address], [place], [place] [id number] MD Jeremy Mcdaniels MD Phone: [phone]
[2023-05-23] MEDS: LACTATED RINGERS 1,000 ML 42 ML IV (09:47)
--- NOTE | 2023-05-23 09:53 | P.HP_ITS ---
History of Present Illness History of Present Illness Date Patient Seen: 05/23/23 Time Patient Seen: 09:54 Chief complaint: EGD Narrative: I recently reviewed the note by Raul Shah. Patient indicates that she is no longer iron deficient and has not been taking iron supplementation since about November. She continues to struggle with B12 deficiency. [facility] Medical History Iron deficiency anemia Vision disorder Herpes Chicken pox Anemia Vertigo Recurrent sinusitis Hemorrhoid (~2016) Hypothyroidism Surgical History Anesthesia History of sinus surgery (~01/2012) History of section [place] teeth removed (~1994) Social History marital status: household members: spouse pets and animals: Yes education level: master's degree occupational status: employed pasha/hinduism: buddhism leisure activities: reading other: [employer] seatbelt use: always helmet use: Yes working smoke detector in home: Yes fire extinguisher in home: Yes carbon monox detector in home: Yes firearms in home: No Smoking Status: Never smoker alcohol intake: current substance use type: does not use during the past year weight has: increased > 10 lbs daily servings fruits/ve-4 caffeine: Yes eating out: rarely or never Meds Home Medications and Allergies Home Medications Medication Instructions Recorded Confirmed Type levothyroxine 100 mcg tablet See Rx Instructions .Route 04/20/21 12/24/22 Rx .COMPLEX #90 tabs Allergies Allergy/AdvReac Type Severity Reaction Status Date / Time Sulfa (Sulfonamide AdvReac Mild swelling Verified 12/24/22 08:22 Antibiotics) ankles, blotches Review of Systems Review of Systems ROS: Yes All systems reviewed with the patient and are negative except as otherwise documented Exam Const General: cooperative HENMT Head: normal to inspection Eyes General: appearance normal, both eyes and all related structures Neck Neck: normal visual inspection Chest Chest: normal inspection of the chest Resp Effort & Inspection: normal respiratory effort Cardio Rate: regular rate GI Inspection: normal to inspection Skin General: no rashes or lesions noted Neuro General: patient alert and patient awake Extrem General: normal to inspection and no pedal edema Psych Appearance: grossly normal Assessment & Plan Assessment & Plan narrative: 52-year-old female with a history of intermittent iron-deficiency and B12 deficiency. EGD is pursued today with random biopsies.
--- NOTE | 2023-05-23 09:56 | PM.PREOP ---
Pre-operative Note Interval Note History & Physical reviewed/Exam performed by Physician: Yes Changes to H&P: No ASA Class (for procedural sedation): I
[2023-05-23 09:58] VITALS: BMI 25.7
[2023-05-23 10:03] VITALS: BP 131/82; PULSE 66; RESP 17; TEMP 36.9; O2SAT 97
--- NOTE | 2023-05-23 11:11 | PM.OP.EGD ---
Operative Date/Time/Diagnoses Date of procedure: 05/23/23 Time of procedure: 11:11 Pre-op diagnosis: Intermittent iron-deficiency and established B12 deficiency. Post-op diagnosis: same Procedure & Clinicians Study performed: EGD with biopsies Same procedure as scheduled: Yes Indications: Intermittent iron-deficiency and established B12 deficiency. Surgeon: German Werner Procedure Notes SCOAP/Timeout: Done Procedure in detail: After the risks and benefits were explained, written and verbal informed consent was obtained. The patient was brought into the procedure room and placed into the left lateral decubitus position. Please see anesthesia notes for sedation details. The scope was introduced into the mouth through the bite block and advanced under direct visualization to the 2nd portion of the duodenum. The scope was slowly withdrawn carefully examining the mucosa for any defects or lesions. Retroflexed views were accomplished in the stomach. The stomach was decompressed, the scope was then removed from the patient who tolerated the procedure well. Sedation minutes: 13 Complications: none Impression: 1. Duodenum: No pathology appreciated from the bulb through to the 2nd portion. Random D2 biopsies were taken for exclusion of sprue. 2. Stomach: No gastric outlet obstruction. No mass lesions no ulceration. The patient had a moderate gastropathy characterized by striped erythema all through the antrum and more diffuse erythema throughout the remainder of the stomach. The gastric body seemed somewhat atrophic. Biopsies were taken from the antrum and body and submitted separately. Retroflexed views of the LES disclosed sliding hiatal hernia with a Hill valve grade 2 3. Esophagus: The squamocolumnar junction correlated with the top of the gastric folds. GEJ was at about 37 cm from the incisors. Small sliding hiatal hernia was noted. No evidence of any active esophagitis. The squamocolumnar junction appeared consistent with healed prior esophagitis. The mid and proximal esophagus demonstrated tightly group circumferential rings suggestive of the possibility of eosinophilic infiltration. I therefore took mid esophageal biopsies to exclude this possibility. Endoscopic diagnosis 1. Gastropathy 2. Small sliding hiatal hernia 3. Esophageal circumferential rings - biopsied Post-procedure Plan for aftercare: 1. Await histology 2. Follow up GI clinic with Raul Shah Disposition: PACU
[2023-05-23 11:14] VITALS: BP 90/64; PULSE 72; RESP 18; TEMP 36.3; O2SAT 97
[2023-05-23 11:21] VITALS: BP 89/60; PULSE 64; RESP 18; O2SAT 96
[2023-05-23 11:24] VITALS: BP 96/67; PULSE 70; RESP 17; O2SAT 97
[2023-05-23 11:32] VITALS: BP 95/62; PULSE 57; RESP 17; TEMP 36.7; O2SAT 97
== END 2023-05-23 11:48 | disposition home or self-care (01) ==
PROVIDERS: PCP Naturopath; Referring Provider Internal Medicine Gastroenterology; Visit Provider Internal Medicine Gastroenterology
PROC: 0DJ08ZZ Inspection of Upper Intestinal Tract, Via Natural or Artificial Opening Endoscopic (ICD-10-PCS; CPT 43235; principal; 2023-05-23 10:30)
DX: E53.8 Deficiency of other specified B group vitamins (principal); K29.50 Unspecified chronic gastritis without bleeding; K31.A12 Gastric intestinal metaplasia without dysplasia, involving the body (corpus)
CPT/HCPCS: 43239; J2405; J2704

== ENCOUNTER → 2023-08-03 13:41 | Outpatient (CLI) | payer OTHER, SELFPAY ==
--- NOTE | 2023-08-03 13:43 | DI.MG.S_ITS ---
BILATERAL DIGITAL SCREENING MAMMOGRAM 3D/2D WITH CAD: 08/03/2023 CLINICAL: Routine screening. Comparison is made to exams dated: 09/14/2021 mammogram, 06/09/2020 mammogram, and 11/13/2018 mammogram - [facility]. Both breasts are heterogeneously dense, which may obscure small masses (category c / 51-75% glandular tissue). Current study was also evaluated with a Computer Aided Detection (CAD) system. There is a focal asymmetry in the left breast at 8 o'clock posterior depth. No other significant masses, calcifications, or other findings are seen in either breast. IMPRESSION: INCOMPLETE: NEEDS ADDITIONAL IMAGING EVALUATION The focal asymmetry in the left breast is indeterminate. Additional views with possible ultrasound are recommended. Based on the Tyrer Cuzick model (a risk assessment model) the patient's lifetime risk is 13.4% and her 10 year risk is 3.3%. According to the ACR, ACS, and NCCN guidelines, an annual breast MRI exam along with mammogram is recommended if the patient's lifetime risk is 20% or greater. This exam was interpreted at Station ID: [id number]. NOTE: For mammograms, a report in lay terms will be sent to the patient. Approximately 15% of breast malignancies will not be visualized mammographically. In the management of a palpable breast mass, a negative mammogram must not discourage biopsy of a clinically suspicious lesion. Electronically Signed By: Carolyn betancourt/eric:08/03/2023 17:07:11 letter sent: Additional Imaging Needed ACR BI-RADS Category 0: Incomplete [id number]
== END ==
LOC: MAMMO 13:42
PROVIDERS: PCP Naturopath; Referring Provider Naturopath; Visit Provider Naturopath
DX: Z12.31 Encounter for screening mammogram for malignant neoplasm of breast (principal); N64.89 Other specified disorders of breast; R92.30 Dense breasts, unspecified
CPT/HCPCS: 77063; 77067

== ENCOUNTER → 2023-08-26 11:56 | Outpatient (CLI) | payer OTHER, SELFPAY ==
--- NOTE | 2023-08-26 12:00 | DI.MG.S_ITS ---
UNILATERAL LEFT DIGITAL DIAGNOSTIC MAMMOGRAM 3D/2D WITH ADDITIONAL VIEWS: 08/26/2023 CLINICAL: Additional evaluation requested from prior study. Comparison is made to exams dated: 08/03/2023 mammogram, 09/14/2021 mammogram - [facility], 01/27/2021 mammogram - [facility], 06/09/2020 mammogram, 11/13/2018 mammogram, and 10/26/2018 mammogram - [facility]. The left breast is heterogeneously dense, which may obscure small masses (category c / 51-75% glandular tissue). The focal asymmetry in the left breast at 8 o'clock posterior depth is less prominent on additional views. No other significant masses or calcifications are seen in the breast. IMPRESSION: INCOMPLETE: NEEDS ADDITIONAL IMAGING EVALUATION The focal asymmetry in the left breast is indeterminate. An ultrasound is recommended and will be performed following this exam. Based on the Tyrer Cuzick model (a risk assessment model) the patient's lifetime risk is 13.4% and her 10 year risk is 3.3%. According to the ACR, ACS, and NCCN guidelines, an annual breast MRI exam along with mammogram is recommended if the patient's lifetime risk is 20% or greater. This exam was interpreted at Station ID: [id number]. NOTE: For mammograms, a report in lay terms will be sent to the patient. Approximately 15% of breast malignancies will not be visualized mammographically. In the management of a palpable breast mass, a negative mammogram must not discourage biopsy of a clinically suspicious lesion. Electronically Signed By: Carolyn betancourt/:08/26/2023 12:44:55 ACR BI-RADS Category 0: Incomplete [id number]
--- NOTE | 2023-08-26 12:00 | DI.US.S_ITS ---
LIMITED ULTRASOUND OF LEFT BREAST: 08/26/2023 CLINICAL: Patient returns today to evaluate an asymmetry in the left breast. Comparison is made to exams dated: 08/26/2023 mammogram, 08/03/2023 mammogram, 09/14/2021 mammogram - [facility], 01/27/2021 ultrasound, 01/27/2021 mammogram - [facility], and 09/09/2020 breast MRI - [facility]. Color flow and real-time ultrasound of the left breast 7-8 o'clock region were performed on the areas of interest. Ann scale images of the real-time examination were reviewed. IMPRESSION: NEGATIVE There is no sonographic evidence of malignancy. There is no abnormality seen in the left breast to correspond with the mammography finding which is most consistent with superimposed fibroglandular tissue. Return to annual mammogram screening schedule is recommended. This exam was interpreted at Station ID: [id number]. Electronically Signed By: Carolyn betancourt/:08/26/2023 13:56:59 letter sent: Normal Exam Ultrasound BI-RADS: 1 Negative
[2023-08-26 14:31] LABS: Add Manual Diff / Slide Review NO; Basophils Absolute Auto 100 /uL (0-100); Basophils Percent Auto 1.1 % (0-2); Eosinophils Absolute Auto 100 /uL (0-450); Eosinophils Percent Auto 1.1 % (2-4); Hematocrit 43.2 % (36-46); Hemoglobin 14.9 g/dL (12.0-16.0); Lymphocytes Absolute Auto 1700 /uL (1100-4500); Lymphocytes Percent Auto 24.5 % (25-40); Mean Corpuscular HGB Conc 34.6 % (30-36); Mean Corpuscular Hemoglobin 30.7 PG (26-34); Mean Corpuscular Volume 88.7 fL (80-100); Monocytes Absolute Auto 500 /uL (0-900); Monocytes Percent Auto 6.8 % (3-14); Neutrophils Absolute Auto 4600 /uL (1500-7000); Neutrophils Percent Auto 66.5 % (50-75); Platelet Count 210 X10^3/uL (150-400); Red Blood Cell Count 4.87 X10^6/uL (4.0-5.2); Red Cell Distribution Width 13.5 % (11.6-14.8); White Blood Cell Count 6.9 X10^3/uL (4.5-11.0)
[2023-08-26 15:09] LABS: Free T3, Triiodothyronine Free 3.63 pg/mL (2.77-5.27); Free T4, Direct Thyroxine 1.25 ng/dL (0.78-2.19)
[2023-08-26 15:22] LABS: Thyroid Stimulating Hormone 2.48 uIU/mL (0.47-4.68)
[2023-08-26 15:57] LABS: Folate 8.7 ng/mL (2.76-20.0); Vitamin B12 921 pg/mL (239-931)
== END ==
LOC: MAMMO 11:58
PROVIDERS: PCP Naturopath; Referring Provider Naturopath; Visit Provider Naturopath
DX: Z00.00 Encounter for general adult medical examination without abnormal findings (principal); R92.2 Inconclusive mammogram; N63.20 Unspecified lump in the left breast, unspecified quadrant; R92.332 Mammographic heterogeneous density, left breast; E03.9 Hypothyroidism, unspecified; D64.9 Anemia, unspecified; D75.9 Disease of blood and blood-forming organs, unspecified; R53.83 Other fatigue
CPT/HCPCS: 36415; 76642; 77065; 82607; 82746; 84439; 84443; 84481; 85025; G0279

== ENCOUNTER 2023-08-31 13:41 | Day surgery (SDC) | payer OTHER, SELFPAY ==
--- NOTE | 2023-08-31 | PATH_ITS ---
[facility] Accession Number: [id number] No. of containers..06 Tissue . 01 Material submitted: . PART A: stomach - ANTRUM- GREATER CURVE PART B: stomach - ANTRUM - LESSER CURVE PART C: stomach - INSUSURA PART D: stomach - BODY-GREATER CURVE PART E: stomach - BODY-LESSER CURVE PART F: esophagus - ESOPHAGEAL BX . 01 Clinical history: . D-E) R/O AUTOIMMUNE GASTRITIS . 01 Diagnosis: Part A: ANTRUM- GREATER CURVE: Gastric mucosa with mild chronic inflammation. No Helicobacter organisms identified. No intestinal metaplasia, dysplasia, or malignancy identified. . Part B: ANTRUM - LESSER CURVE: Gastric mucosa with mild chronic inflammation. No Helicobacter organisms identified. No intestinal metaplasia, dysplasia, or malignancy identified. . Part C: INSUSURA: Gastric mucosa with mild chronic inflammation. No Helicobacter organisms identified. No intestinal metaplasia, dysplasia, or malignancy identified. . Part D: BODY-GREATER CURVE: Chronic gastritis, with glandular atrophy, suggestive of immune-mediated (atrophic) gastritis. No intestinal metaplasia, dysplasia, malignancy, or Helicobacter organisms identified. See comment. . Part E: BODY-LESSER CURVE: Chronic gastritis, with intestinal metaplasia and glandular atrophy, suggestive of immune-mediated (atrophic) gastritis. No dysplasia, malignancy, or Helicobacter organisms identified. See comment. . Part F: ESOPHAGEAL BX: Squamous mucosa with no diagnostic alterations. Eosinophils are not increased. [facility] 09/07/2023 [facility]3 Local . 01 Comment: Parts D, E: The features are highly suggestive of immune-mediated (atrophic) gastritis. Correlation with clinical features and serologic studies (anti-parietal cell and intrinsic factor antibodies) is recommended for further evaluation, if clinically indicated. . Parts A, C, D, E: An immunohistochemical stain was performed to evaluate for Helicobacter organisms and is negative. The control stains appropriately. * This test was developed and its performance characteristics determined by [employer]. It has not been cleared or approved by the U.S. Food and Drug Administration. The FDA has determined that such clearance or approval is not necessary. This test is used for clinical purposes. It should not be regarded as investigational or for research. . 01 Electronically signed: . Jeremy Mcdaniels MD, Pathologist NPI- [id number] . 01 Gross description: . Part A: ANTRUM- GREATER CURVE: Received in formalin are 3 fragment(s) of [place], soft tissue measuring 0.2 x 0.2 x 0.2 cm to 0.4 x 0.2 x 0.2 cm submitted entirely in 1 cassette(s) . Part B: ANTRUM - LESSER CURVE: Received in formalin are 2 fragment(s) of [place], soft tissue measuring 0.2 x 0.2 x 0.2 cm to 0.4 x 0.2 x 0.2 cm submitted entirely in 1 cassette(s) . Part C: INSUSURA: Received in formalin are 2 fragment(s) of [place], soft tissue measuring 0.2 x 0.2 x 0.2 cm to 0.5 x 0.2 x 0.2 cm submitted entirely in 1 cassette(s) . Part D: BODY-GREATER CURVE: Received in formalin are multiple fragment(s) of [place], soft tissue measuring 0.1 x 0.1 x 0.1 cm to 0.3 x 0.2 x 0.2 cm submitted entirely in 1 cassette(s) . Part E: BODY-LESSER CURVE: Received in formalin are multiple fragment(s) of [place], soft tissue measuring 0.1 x 0.1 x 0.1 cm to 0.3 x 0.2 x 0.2 cm submitted entirely in 1 cassette(s) . Part F: ESOPHAGEAL BX: Received in formalin are 4 fragment(s) of [place], soft tissue measuring 0.1 x 0.1 x 0.1 cm to 0.3 x 0.3 x 0.1 cm submitted entirely in 1 cassette(s) /[facility] 09/07/2023 1353 Local . 01 Pathologist provided ICD-10: K29.40, K29.50 . 01 CPT . 167830, 976069, 949404, 537524, 695105, 924477, K38233 Specimen Comment: A courtesy copy of this report has been sent to [phone] Performed at: 01 [facility] [address] [place] [id number] MD Jeremy Mcdaniels MD Phone: [phone]
[2023-08-31 14:00] VITALS: BP 112/76; PULSE 64; RESP 16; TEMP 36.6; O2SAT 100
--- NOTE | 2023-08-31 14:05 | PM.HP.1 ---
History of Present Illness History of Present Illness Chief complaint: EGD Narrative: History of gastric intestinal metaplasia due to have repeat EGD for mapping. Also will have pathology rule out autoimmune gastritis. Patient is known to be B12 deficient [facility] Medical History Iron deficiency anemia Vision disorder Herpes Chicken pox Anemia Vertigo Recurrent sinusitis Hemorrhoid (~2016) Hypothyroidism Surgical History Anesthesia History of sinus surgery (~01/2012) History of section [place] teeth removed (~1994) Social History marital status: household members: spouse pets and animals: Yes education level: master's degree occupational status: employed pasha/latter day: orthodox leisure activities: reading other: [employer] seatbelt use: always helmet use: Yes working smoke detector in home: Yes fire extinguisher in home: Yes carbon monox detector in home: Yes firearms in home: No Smoking Status: Never smoker alcohol intake: current substance use type: does not use during the past year weight has: increased > 10 lbs daily servings fruits/ve-4 caffeine: Yes eating out: rarely or never Meds Home Medications and Allergies Home Medications Medication Instructions Recorded Confirmed Type levothyroxine 100 mcg tablet See Rx Instructions .Route 04/20/21 05/23/23 Rx .COMPLEX #90 tabs cyanocobalamin (vitamin B-12) mcg IM 05/23/23 History 1,000 mcg/mL injection solution Allergies Allergy/AdvReac Type Severity Reaction Status Date / Time Sulfa (Sulfonamide AdvReac Mild swelling Verified 05/23/23 09:56 Antibiotics) ankles, blotches Exam Narrative Exam Narrative: Oropharynx free of lesions Chest clear to auscultation percussion Cardiac exam reveals no S3 or murmur Assessment & Plan Assessment & Plan narrative: Gastric intestinal metaplasia due for mapping. Risks benefits and alternatives have been explained. Further recommendations to follow the results of the study.
[2023-08-31] MEDS: LACTATED RINGERS 1,000 ML 100 ML IV (14:06)
--- NOTE | 2023-08-31 14:07 | PM.OP.EGD ---
Operative Date/Time/Diagnoses Date of procedure: 08/31/23 Pre-op diagnosis: See indication and findings Procedure & Clinicians Study performed: EGD Indications: Gastric intestinal metaplasia Surgeon: Josemanuel Manuel Procedure Notes Procedure in detail: After informed consent was obtained the patient was placed in left lateral decubitus position. The video upper scope was placed into the oropharynx and with the patient's help swelled into the esophagus. The esophagus stomach and duodenum were carefully examined. On withdrawal retroflexed view the GE junction was performed. The scope was removed. The patient tolerated procedure well. Blood loss none Complications none Sedation mac Findings 1. Esophagus had multiple concentric rings with some longitudinal furrows particularly in the mid esophagus. This had been biopsied previously but it looks so clear cut that I decided to biopsy again to rule out eosinophilic esophagitis 2. Stomach was moderately to severely inflamed with striped mucosa not only in the antrum but extending well up into the upper body. This is particularly so in the greater curvature. Striped were 2 cm wide. Biopsies were taken for gastric mapping in the antrum lesser curve, antrum greater curve, incisura, body lesser curve, body greater curve. Most sites had more the 1 pass of biopsies. 3. Normal duodenal bulb and sweep I will follow up with her biopsy results and discuss further workup and treatment.
[2023-08-31 15:32] VITALS: BP 106/70; PULSE 61; RESP 19; TEMP 36.1; O2SAT 94
[2023-08-31 15:36] VITALS: BP 103/76; PULSE 68; RESP 18; O2SAT 97
[2023-08-31 15:42] VITALS: BP 106/77; PULSE 61; RESP 21; TEMP 36.1; O2SAT 97
[2023-08-31 16:05] VITALS: BP 105/68; PULSE 68; RESP 16; O2SAT 99
== END 2023-08-31 16:05 | disposition home or self-care (01) ==
PROVIDERS: PCP Naturopath; Referring Provider Internal Medicine Gastroenterology; Visit Provider Internal Medicine Gastroenterology
PROC: 0DJ08ZZ Inspection of Upper Intestinal Tract, Via Natural or Artificial Opening Endoscopic (ICD-10-PCS; CPT 43235; principal; 2023-08-31 14:30)
DX: K31.A0 Gastric intestinal metaplasia, unspecified (principal); K29.50 Unspecified chronic gastritis without bleeding
CPT/HCPCS: 43239; J2405; J2704

== ENCOUNTER → 2023-12-19 09:51 | Outpatient (CLI) | payer OTHER, SELFPAY ==
[2023-12-19 11:26] LABS: Add Manual Diff / Slide Review NO; Basophils Absolute Auto 100 /uL (0-100); Basophils Percent Auto 0.8 % (0-2); Eosinophils Absolute Auto 100 /uL (0-450); Eosinophils Percent Auto 1.2 % (2-4); Hematocrit 42.3 % (36-46); Hemoglobin 14.7 g/dL (12.0-16.0); Lymphocytes Absolute Auto 1400 /uL (1100-4500); Lymphocytes Percent Auto 16.9 % (25-40); Mean Corpuscular HGB Conc 34.8 % (30-36); Mean Corpuscular Hemoglobin 30.7 PG (26-34); Mean Corpuscular Volume 88.2 fL (80-100); Monocytes Absolute Auto 500 /uL (0-900); Monocytes Percent Auto 6.1 % (3-14); Neutrophils Absolute Auto 6300 /uL (1500-7000); Platelet Count 220 X10^3/uL (150-400); Red Blood Cell Count 4.79 X10^6/uL (4.0-5.2); Red Cell Distribution Width 13.4 % (11.6-14.8); White Blood Cell Count 8.3 X10^3/uL (4.5-11.0)
[2023-12-19 12:07] LABS: Free T3, Triiodothyronine Free 3.39 pg/mL (2.77-5.27); Free T4, Direct Thyroxine 1.35 ng/dL (0.78-2.19)
[2023-12-19 12:20] LABS: Thyroid Stimulating Hormone 0.384 uIU/mL (0.47-4.68)
[2023-12-19 12:57] LABS: Folate 6.4 ng/mL (2.76-20.0); Vitamin B12 753 pg/mL (239-931)
== END ==
LOC: LAB 09:58
PROVIDERS: PCP Naturopath; Referring Provider Naturopath; Visit Provider Naturopath
DX: Z00.00 Encounter for general adult medical examination without abnormal findings (principal); E03.9 Hypothyroidism, unspecified; D64.9 Anemia, unspecified; R53.83 Other fatigue; D75.9 Disease of blood and blood-forming organs, unspecified; D51.9 Vitamin B12 deficiency anemia, unspecified
CPT/HCPCS: 36415; 82607; 82746; 84439; 84443; 84481; 85025

== ENCOUNTER → 2024-01-27 07:21 | Outpatient (CLI) | payer OTHER, SELFPAY ==
[2024-01-27 09:22] LABS: Free T3, Triiodothyronine Free 3.38 pg/mL (2.77-5.27); Free T4, Direct Thyroxine 0.99 ng/dL (0.78-2.19)
[2024-01-27 09:35] LABS: Thyroid Stimulating Hormone 1.02 uIU/mL (0.47-4.68)
[2024-01-30 12:09] LABS: Gastric Parietal Cell AB 116.2 Units (0.0-20.0)
[2024-01-30 12:40] LABS: Intrinsic Factor Blocking Aby 1.1 AU/mL (0.0-1.1)
[2024-01-30 21:41] LABS: Methylmalonic Acid,Serum 225 nmol/L (0-378)
== END ==
PROVIDERS: PCP Naturopath; Referring Provider Naturopath; Visit Provider Naturopath
DX: K29.40 Chronic atrophic gastritis without bleeding (principal); D51.9 Vitamin B12 deficiency anemia, unspecified; E03.9 Hypothyroidism, unspecified
CPT/HCPCS: 36415; 83516; 83921; 84439; 84443; 84481; 86340

== ENCOUNTER → 2024-08-04 | Outpatient (CLI) | payer OTHER, SELFPAY ==
--- NOTE | 2024-08-04 | DI.MG.S_ITS ---
BILATERAL DIGITAL SCREENING MAMMOGRAM 3D/2D WITH CAD: 08/04/2024 CLINICAL: Routine screening. Comparison is made to exams dated: 08/03/2023 mammogram, 09/14/2021 mammogram, and 06/09/2020 mammogram - [facility]. The breasts are heterogeneously dense, which may obscure small masses (category c / 51-75% glandular tissue). Current study was also evaluated with a Computer Aided Detection (CAD) system. No significant masses, calcifications, or other findings are seen in either breast. There has been no significant interval change. IMPRESSION: NEGATIVE There is no mammographic evidence of malignancy. A 1 year screening mammogram is recommended. Based on the Tyrer Cuzick model (a risk assessment model) the patient's lifetime risk is 13.6% and her 10 year risk is 3.6%. According to the ACR, ACS, and NCCN guidelines, an annual breast MRI exam along with mammogram is recommended if the patient's lifetime risk is 20% or greater. This exam was interpreted at Station ID: [id number]. NOTE: For mammograms, a report in lay terms will be sent to the patient. Approximately 15% of breast malignancies will not be visualized mammographically. In the management of a palpable breast mass, a negative mammogram must not discourage biopsy of a clinically suspicious lesion. Electronically Signed By: Sindy De La Torre M.D., Ph.D. jace/eric:08/08/2024 13:23:12 letter sent: Normal Exam ACR BI-RADS Category 1: Negative
== END ==
PROVIDERS: PCP Family Medicine; Referring Provider Family Medicine; Visit Provider Family Medicine
DX: Z12.31 Encounter for screening mammogram for malignant neoplasm of breast (principal); R92.333 Mammographic heterogeneous density, bilateral breasts
CPT/HCPCS: 77063; 77067

== ENCOUNTER → 2025-06-17 07:17 | Outpatient (CLI) | payer OTHER, SELFPAY ==
[2025-06-17 07:51] LABS: Hematocrit 44.0 % (36-46); Hemoglobin 15.4 g/dL (12.0-16.0); Mean Corpuscular HGB Conc 35.0 % (30-36); Mean Corpuscular Hemoglobin 30.7 PG (26-34); Mean Corpuscular Volume 87.8 fL (80-100); Platelet Count 194 X10^3/uL (150-400)
[2025-06-17 08:18] LABS: Cholesterol 220 mg/dL (140-199); HDL Cholesterol 69 mg/dL (40-60); Triglycerides 151 mg/dL (35-150)
[2025-06-17 08:50] LABS: TSH w/ Reflex to FT4 0.43 uIU/mL (0.47-4.68)
[2025-06-17 09:20] LABS: Free T4, Direct Thyroxine 1.43 ng/dL (0.78-2.19)
== END ==
PROVIDERS: PCP Family Medicine; Referring Provider Family Medicine; Visit Provider Family Medicine
DX: Z13.220 Encounter for screening for lipoid disorders (principal); E03.9 Hypothyroidism, unspecified; R53.83 Other fatigue
CPT/HCPCS: 36415; 80061; 84439; 84443; 85027